=== PATIENT | male | born 1980 | race Caucasian/White ===

== ENCOUNTER → 2020-11-01 | Outpatient (CLI) | payer OTHER ==
--- NOTE | 2020-11-01 16:41 | RAD ---
EXAM: Chest, 2 views. HISTORY: Cough. Chest pain. COMPARISON: None. FINDINGS: 2 views of the chest are obtained. There is right apical pleural thickening with adjacent a nastomotic suture due to prior partial lung resection and suspected scarring. There is no infiltrate, pleural effusion or pneumothorax. The heart is normal in size. IMPRESSION: Right apical postoperative changes. No acute pulmonary finding. Electronically signed by: Hailey Cleaning MD (11/01/2020 4:39 PM) [id number]
== END ==
LOC: DXRAD 15:57
PROVIDERS: ATTEND Nurse Practitioner Family
DX: R07.89 Other chest pain (principal)
CPT/HCPCS: 71046

== ENCOUNTER → 2020-11-16 | Outpatient (CLI) | payer OTHER ==
--- NOTE | 2020-11-16 15:47 | RAD ---
Examination: CT chest without contrast HISTORY: History of cough COMPARISON: None TECHNIQUE: Axial CT images of the chest were performed without contrast. Coronal and sagittal deformi ties are performed Exposure: One or more of the following individualized dose reduction techniques were utilized for thi s examination: 1. Automated exposure control 2. Adjustment of the mA and/or kV according to patient size 3. Use of iterative reconstruction technique FINDINGS: The central airways are patent. The visualized heart size grossly appears unremarkable. Coronary suma ry calcifications. No radiologically significant mediastinal lymphadenopathy. Surgical changes identi fied in the right apical lung with associated small scarring and consolidation right apical lungs pos teriorly.There is a 9 mm nodule identified in the right lower lobe of the lung. Mild decreased attenu ation within the liver likely steatosis. The spleen, adrenals grossly appears unremarkable Mild degenerative changes thoracic spine. IMPRESSION: 1. 9 mm nodule right lower lobe of the lung. Follow-up of per Fleischner Society guidelines. Follow-u p CT in 6-12 months. 2. Surgical changes right apical lung. Electronically signed by: Ollie Rust MD (11/16/2020 3:44 PM) [id number]
== END ==
LOC: CT 14:38
PROVIDERS: ATTEND Nurse Practitioner Family
DX: R91.1 Solitary pulmonary nodule (principal); R07.9 Chest pain, unspecified; M94.0 Chondrocostal junction syndrome [Tietze]
CPT/HCPCS: 71250